=== PATIENT | female | born 1965 | race Caucasian/White ===

== ENCOUNTER → 2017-03-14 | Outpatient (CLI) | payer OTHER ==
[~2017-03-14] MED LIST: AMLODIPINE BESY1 TAB PO; ATARAX25 MG PO; AUGMENTIN 875 M1 TA1 PO; Amitriptyline H10 MG PO; BLOOD PRESSURE MED PO; BUMETANIDE2 MG PO; ESTRACE0.5 MG PO; ESTRACE1 M1 PO; FEROSUL325 MG PO; FLEXERIL10 MG PO; FLEXERIL5 MG PO; FUROSEMIDE40 MG PO; GLUCAPHAGE PO; GLYBURIDE5 MG PO; HUMALOG100 U/ML SC; HUMULIN R100 U/ML SC; HYDROCODONE BIT1 T11 PO; K-DUR 1010 MEQ PO; KLOR-CON M2020 ME1 PO; LANTUS100 U/ML SC; LASIX40 MG PO; LEVEMIR10 ML SC; LOPRESSER PO; LOPRESSOR25 MG PO; MEDROL DOSEPAK4 MG PO; MOTRIN800 MG PO; NEURONTIN300 MG PO; NEURONTIN600 MG PO; OMNICEF300 MG PO; ROBAXIN750 MG PO; STOOL SOFTENER100 M1 PO; SYNTHROID,LEV125 MCG PO; SYNTHROID0.125 MG PO; TOBRADEX 0.1%-0.5 ML OPH; TRAD5TAB1 PO; TRAMADOL HCL50 MG PO; ULTRAM50 MG PO; VITAMIN C500 M6 PO; VITAMIN D10000 UNIT PO; ZANTAC 150150 MG PO; ZITHROMAX Z PA250 MG PO
[2017-03-14 08:44] LABS: ALBUMIN 3.1 gm/dl (3.1-4.5); PHOSPHOROUS 3.6 mg/dL (2.5-4.9); POTASSIUM 4.8 mmol/L (3.5-5.1)
[2017-03-14 09:31] LABS: HEMOGLOBIN A1c 9.9 % (4.8-5.6)
== END | disposition home or self-care (01) ==
LOC: LAB 07:29
PROVIDERS: Family Medicine
DX: N18.3 Chronic kidney disease, stage 3 (moderate) (principal); E78.00 Pure hypercholesterolemia, unspecified; R05 Cough; M79.1 Myalgia; M62.838 Other muscle spasm

== ENCOUNTER 2017-09-11 12:44 | Emergency (ER) | payer OTHER ==
[~2017-09-11] VITALS: Ht 157.4 cm; Wt 124.7 kg
[2017-09-11 13:06] LABS: HEMATOCRIT 39.3 % (37.0-47.0); HEMOGLOBIN 12.8 g/dl (12.0-16.0); MEAN CELL VOLUME 89.3 fl (81.0-99.0); MEAN CORPUSCULAR HGB 29.1 pg (27.0-31.0); MEAN CORPUSCULAR HGB CONC 32.6 g/dl (33.0-37.0); MEAN PLATELET VOLUME 9.6 fl (9.6-12.3); PLATELET COUNT AUTOMATED 78 10*3/uL (130-400); WHITE BLOOD COUNT 6.4 10*3/uL (4.8-10.8)
[2017-09-11 13:21] LABS: ACT PARTIAL THROMBO TIME 28.2 SECONDS (20.8-31.5)
[2017-09-11 13:25] LABS: ALBUMIN 2.9 gm/dl (3.1-4.5); ALKALINE PHOSPHATASE 258 U/L (45-117); BUN 26 mg/dl (7-24); CHLORIDE 99 mmol/L (98-107); CREATININE 1.62 mg/dL (0.55-1.02); POTASSIUM 4.7 mmol/L (3.5-5.1); SGOT/AST 48 IU/L (3-35); SGPT/ALT 53 U/L (12-78); SODIUM 135 mmol/L (136-145); TOTAL PROTEIN 8.1 gm/dL (6.4-8.2)
[2017-09-11 13:28] LABS: ATYPICAL LYMPHS 4 % (0-0); BASOPHILS 1 % (0-1); PLASMA CELL 2 % (0-0); TOTAL CELLS COUNTED 100 #CELLS; TROPONIN I < 0.015 ng/ml (<0.045)
[2017-09-11 13:30] LABS: PLATELET SUFFICIENCY LOW (NORMAL); ROULEAUX MODERATE
[2017-09-11 16:19] VITALS: BP 153/57
== END 2017-09-11 16:20 | disposition home or self-care (01) ==
LOC: ED 12:44
PROVIDERS: Emergency Medicine
DX: R07.89 Other chest pain (principal); E66.01 Morbid (severe) obesity due to excess calories; R10.84 Generalized abdominal pain; I12.9 Hypertensive chronic kidney disease with stage 1 through stage 4 chronic kidney disease, or unspecified chronic kidney disease; E11.22 Type 2 diabetes mellitus with diabetic chronic kidney disease; N18.3 Chronic kidney disease, stage 3 (moderate); Z86.73 Personal history of transient ischemic attack (TIA), and cerebral infarction without residual deficits; Z68.43 Body mass index [BMI] 50.0-59.9, adult; Z98.890 Other specified postprocedural states; Z90.710 Acquired absence of both cervix and uterus; Z88.1 Allergy status to other antibiotic agents; Z79.4 Long term (current) use of insulin; Z79.899 Other long term (current) drug therapy

== ENCOUNTER → 2017-09-13 | Outpatient (CLI) | payer OTHER ==
[2017-09-14 07:05] LABS: RHEUMATOID ARTHRITIS FACTOR 14.2 IU/mL (0.0-13.9)
[2017-09-14 13:04] LABS: ANTI-SMOOTH MUSCLE ANTIBODY 33 Units (0-19)
[2017-09-14 16:11] LABS: SJOREN AB, ANTI-SS-B <0.2 AI (0.0-0.9)
== END | disposition home or self-care (01) ==
LOC: LAB 10:00
PROVIDERS: Family Medicine
DX: R07.9 Chest pain, unspecified (principal); M25.50 Pain in unspecified joint; M79.1 Myalgia

== ENCOUNTER 2017-09-17 19:07 | Emergency (ER) | payer OTHER ==
[~2017-09-17] VITALS: Ht 157.4 cm; Wt 124.7 kg
[2017-09-17 19:22] VITALS: BP 127/41
[2017-09-17 20:02] LABS: BASO % 0.1 % (0.0-1.0); EOS % 0.1 % (1.0-4.0); HEMATOCRIT 36.6 % (37.0-47.0); HEMOGLOBIN 11.9 g/dl (12.0-16.0); LYMPH # 1.1 10*3/uL (1.3-4.4); LYMPH % 9.2 % (27.0-41.0); MEAN CELL VOLUME 89.9 fl (81.0-99.0); MEAN CORPUSCULAR HGB 29.2 pg (27.0-31.0); MEAN CORPUSCULAR HGB CONC 32.5 g/dl (33.0-37.0); MEAN PLATELET VOLUME 10.8 fl (9.6-12.3); MONO # 0.3 10*3/uL (0.1-1.0); MONO % 2.5 % (3.0-9.0); NEUT # 10.6 10*3/uL (2.3-7.9); NEUT % 87.3 % (47.0-73.0); PLATELET COUNT AUTOMATED 199 10*3/uL (130-400); RED BLOOD COUNT 4.07 10*6/uL (4.10-5.10); RED CELL DISTRI WIDTH 13.1 % (0-14.5); WHITE BLOOD COUNT 12.2 10*3/uL (4.8-10.8)
[2017-09-17 20:19] LABS: ALBUMIN 2.5 gm/dl (3.1-4.5); ALKALINE PHOSPHATASE 318 U/L (45-117); BUN 42 mg/dl (7-24); CHLORIDE 100 mmol/L (98-107); CREATININE 1.96 mg/dL (0.55-1.02); POTASSIUM 4.4 mmol/L (3.5-5.1); SGOT/AST 16 IU/L (3-35); SGPT/ALT 27 U/L (12-78); SODIUM 136 mmol/L (136-145); TOTAL PROTEIN 8.7 gm/dL (6.4-8.2)
[2017-09-17 20:20] LABS: TROPONIN I < 0.015 ng/ml (<0.045)
[2017-09-17 20:38] LABS: BILIRUBIN NEGATIVE (NEGATIVE); BLOOD TRACE-INTACT (NEGATIVE); CLARITY CLEAR (CLEAR); COLOR YELLOW (YELLOW); GLUCOSE 3+ (NEGATIVE); KETONE NEGATIVE (NEGATIVE); LEUKO ESTERASE NEGATIVE (NEGATIVE); NITRITE NEGATIVE (NEGATIVE); PH 5.5 (5.0-9.0); SPECIFIC GRAVITY <= 1.005 (1.005-1.030); UROBILINOGEN 0.2 E.U./dl (0.2-1.0)
[2017-09-17 20:53] LABS: BACTERIA TRACE; RBC 0-2 rbc/hpf (0-2); WBC 0-2 wbc/hpf (0-5)
== END 2017-09-17 21:53 | disposition home or self-care (01) ==
LOC: ED 19:07
PROVIDERS: Student in an Organized Health Care Education/Training Program
DX: E11.22 Type 2 diabetes mellitus with diabetic chronic kidney disease (principal); N18.3 Chronic kidney disease, stage 3 (moderate); E11.65 Type 2 diabetes mellitus with hyperglycemia; Z86.73 Personal history of transient ischemic attack (TIA), and cerebral infarction without residual deficits; Z90.710 Acquired absence of both cervix and uterus; Z79.4 Long term (current) use of insulin; Z79.899 Other long term (current) drug therapy

== ENCOUNTER → 2017-09-17 | Outpatient (CLI) | payer OTHER ==
[2017-09-17 13:16] LABS: ALBUMIN 2.7 gm/dl (3.1-4.5); CREATININE 1.77 mg/dL (0.55-1.02); FREE T4 1.17 ng/dl (0.76-1.46); POTASSIUM 5.2 mmol/L (3.5-5.1); TOTAL PROTEIN 8.9 gm/dL (6.4-8.2)
[2017-09-17 13:21] LABS: THYROID STIM HORMONE (HS) 0.998 uIU/ml (0.358-4.75)
== END | disposition home or self-care (01) ==
LOC: LAB 11:11
PROVIDERS: Family Medicine
DX: I10 Essential (primary) hypertension (principal); E11.8 Type 2 diabetes mellitus with unspecified complications; E03.9 Hypothyroidism, unspecified; E78.00 Pure hypercholesterolemia, unspecified

== ENCOUNTER → 2017-10-20 | Outpatient (CLI) | payer OTHER ==
[2017-10-20 08:23] LABS: ALBUMIN 3.1 gm/dl (3.1-4.5); CREATININE 1.78 mg/dL (0.55-1.02); POTASSIUM 5.1 mmol/L (3.5-5.1); TOTAL PROTEIN 7.4 gm/dL (6.4-8.2)
== END | disposition home or self-care (01) ==
LOC: LAB 07:33
PROVIDERS: Family Medicine
DX: M79.1 Myalgia (principal); M25.50 Pain in unspecified joint; E87.5 Hyperkalemia; E87.1 Hypo-osmolality and hyponatremia

== ENCOUNTER 2017-10-31 16:18 | Emergency (ER) | payer OTHER ==
[~2017-10-31] VITALS: Ht 157.4 cm; Wt 124.7 kg
[2017-10-31 16:20] VITALS: BP 144/64
[2017-10-31] MEDS ORDERED: NAPROSYN500 MG PO (17:10)
[2017-10-31] MEDS ORDERED: MEDROL DOSEPAK4 MG PO (17:10)
[2017-10-31] MEDS ORDERED: CYCLOBENZAPRINE10 MG PO (17:10)
== END 2017-10-31 17:22 | disposition home or self-care (01) ==
LOC: ED 16:18
DX: S16.1XXA Strain of muscle, fascia and tendon at neck level, initial encounter (principal); Z88.1 Allergy status to other antibiotic agents; Z79.4 Long term (current) use of insulin; Z79.899 Other long term (current) drug therapy; Z90.710 Acquired absence of both cervix and uterus; X50.0XXA Overexertion from strenuous movement or load, initial encounter; Y93.89 Activity, other specified; Y92.89 Other specified places as the place of occurrence of the external cause; Y99.8 Other external cause status

== ENCOUNTER 2017-11-03 23:58 | Emergency (ER) | payer OTHER ==
[~2017-11-03] VITALS: Ht 157.4 cm; Wt 124.7 kg
[~2017-11-03 23:58] MED LIST changes: +CYCLOBENZAPRINE10 MG PO; +NAPROSYN500 MG PO
[2017-11-04 00:05] VITALS: BP 114/65
[2017-11-04] MEDS ORDERED: ORPHENADRINE C100 M1 PO (00:25)
[2017-11-04] MEDS ORDERED: Motrin,Rufen800 MG PO (00:25)
== END 2017-11-04 01:10 | disposition home or self-care (01) ==
LOC: ED 23:58
DX: S46.811A Strain of other muscles, fascia and tendons at shoulder and upper arm level, right arm, initial encounter (principal); Z88.1 Allergy status to other antibiotic agents; Z79.4 Long term (current) use of insulin; Z79.899 Other long term (current) drug therapy; Z90.710 Acquired absence of both cervix and uterus; X58.XXXA Exposure to other specified factors, initial encounter; Y93.89 Activity, other specified; Y92.89 Other specified places as the place of occurrence of the external cause; Y99.8 Other external cause status

== ENCOUNTER 2017-11-11 10:39 | Emergency (ER) | payer OTHER ==
[~2017-11-11] VITALS: Ht 157.4 cm; Wt 124.7 kg
[~2017-11-11 10:39] MED LIST changes: -AUGMENTIN 875875 MG PO; -DULOXETINE HCL60 MG PO; -LISINOPRIL10 M1 PO; -LYRICA150 M1 PO; -ZANAFLEX CAPSULE6 MG PO
[2017-11-11] MEDS ORDERED: LYRICA150 M1 PO (10:47)
[2017-11-11] MEDS ORDERED: AUGMENTIN 875875 MG PO (10:48)
[2017-11-11] MEDS ORDERED: LISINOPRIL10 M1 PO (10:48)
[2017-11-11] MEDS ORDERED: DULOXETINE HCL60 MG PO (10:48)
[2017-11-11 10:53] VITALS: BP 124/56
[2017-11-11] MEDS ORDERED: ZANAFLEX CAPSULE6 MG PO (12:35)
== END 2017-11-11 12:52 | disposition home or self-care (01) ==
LOC: ED 10:39
DX: M25.78 Osteophyte, vertebrae (principal); E11.22 Type 2 diabetes mellitus with diabetic chronic kidney disease; N18.3 Chronic kidney disease, stage 3 (moderate); E11.65 Type 2 diabetes mellitus with hyperglycemia; E66.01 Morbid (severe) obesity due to excess calories; Z86.73 Personal history of transient ischemic attack (TIA), and cerebral infarction without residual deficits; Z98.890 Other specified postprocedural states; Z90.710 Acquired absence of both cervix and uterus; Z79.4 Long term (current) use of insulin; Z79.899 Other long term (current) drug therapy; Z88.1 Allergy status to other antibiotic agents

== ENCOUNTER → 2017-11-11 | Outpatient (CLI) | payer OTHER ==
[~2017-11-11] MED LIST changes: +AUGMENTIN 875875 MG PO; +DULOXETINE HCL60 MG PO; -HUMALOG100 U/ML SC; +HUMALOG100 UNIT/2 SQ; +LANTUS SOL100 UNIT/1 SQ; +LISINOPRIL10 M1 PO; +LYRICA150 M1 PO; +Motrin,Rufen800 MG PO; +ORPHENADRINE C100 M1 PO; +ZANAFLEX CAPSULE6 MG PO
[2017-11-11 09:58] LABS: PTH INTACT 249.1 pg/mL (14.0-72.0); VITAMIN D, 25-HYDROXY 17.6 ng/mL (30-100)
== END | disposition home or self-care (01) ==
LOC: LAB 08:13
PROVIDERS: Family Medicine
DX: E55.9 Vitamin D deficiency, unspecified (principal)

== ENCOUNTER → 2017-12-14 | Outpatient (CLI) | payer OTHER ==
[~2017-12-14] MED LIST changes: +AUGMENTIN 875875 MG PO; +DULOXETINE HCL60 MG PO; +LISINOPRIL10 M1 PO; +LYRICA150 M1 PO; +ZANAFLEX CAPSULE6 MG PO
[2017-12-14 11:19] LABS: HEMATOCRIT 37.4 % (37.0-47.0); HEMOGLOBIN 12.3 g/dl (12.0-16.0); MEAN CELL VOLUME 93.7 fl (81.0-99.0); MEAN CORPUSCULAR HGB 30.8 pg (27.0-31.0); MEAN CORPUSCULAR HGB CONC 32.9 g/dl (33.0-37.0); MEAN PLATELET VOLUME 9.4 fl (9.6-12.3); RED BLOOD COUNT 3.99 10*6/uL (4.10-5.10); RED CELL DISTRI WIDTH 12.7 % (0-14.5); WHITE BLOOD COUNT 7.4 10*3/uL (4.8-10.8)
[2017-12-14 11:50] LABS: ALBUMIN 3.2 gm/dl (3.1-4.5); POTASSIUM 5.3 mmol/L (3.5-5.1)
[2017-12-14 11:59] LABS: CREATININE 2.37 mg/dL (0.55-1.02); FREE T4 1.14 ng/dl (0.76-1.46); THYROID STIM HORMONE (HS) 0.258 uIU/ml (0.358-4.75); TOTAL PROTEIN 7.1 gm/dL (6.4-8.2)
[2017-12-14 13:19] LABS: PTH INTACT 128.1 pg/mL (14.0-72.0)
== END | disposition home or self-care (01) ==
LOC: LAB 10:52
PROVIDERS: Family Medicine
DX: E21.3 Hyperparathyroidism, unspecified (principal); M62.838 Other muscle spasm; R53.83 Other fatigue; E55.9 Vitamin D deficiency, unspecified

== ENCOUNTER → 2018-04-07 | Outpatient (CLI) | payer OTHER ==
[2018-04-07 08:49] LABS: HEMATOCRIT 40.6 % (37.0-47.0); HEMOGLOBIN 12.9 g/dl (12.0-16.0); MEAN CELL VOLUME 96.9 fl (81.0-99.0); MEAN CORPUSCULAR HGB 30.8 pg (27.0-31.0); MEAN CORPUSCULAR HGB CONC 31.8 g/dl (33.0-37.0); MEAN PLATELET VOLUME 9.9 fl (9.6-12.3); RED BLOOD COUNT 4.19 10*6/uL (4.10-5.10); RED CELL DISTRI WIDTH 12.9 % (0-14.5); WHITE BLOOD COUNT 7.9 10*3/uL (4.8-10.8)
[2018-04-07 08:52] LABS: BILIRUBIN NEGATIVE (NEGATIVE); BLOOD NEGATIVE (NEGATIVE); CLARITY SL CLOUDY (CLEAR); COLOR YELLOW (YELLOW); GLUCOSE 3+ (NEGATIVE); KETONE NEGATIVE (NEGATIVE); LEUKO ESTERASE NEGATIVE (NEGATIVE); NITRITE NEGATIVE (NEGATIVE); PH 5.5 (5.0-9.0); UROBILINOGEN 0.2 E.U./dl (0.2-1.0)
[2018-04-07 09:06] LABS: BACTERIA TRACE; RBC 0-2 rbc/hpf (0-2)
[2018-04-07 09:12] LABS: PHOSPHOROUS 3.9 mg/dL (2.5-4.9)
[2018-04-07 09:17] LABS: ALBUMIN 3.4 gm/dl (3.1-4.5); CREATININE 1.76 mg/dL (0.55-1.02); POTASSIUM 4.1 mmol/L (3.5-5.1)
[2018-04-07 09:20] LABS: TOTAL PROTEIN 7.8 gm/dL (6.4-8.2)
[2018-04-08 09:10] LABS: CREATININE,URINE 112.4 mg/dL (Not Estab.); MICRO ALBUMIN/CRE RATIO 98.7 (0.0-30.0)
== END | disposition home or self-care (01) ==
LOC: LAB 07:54
PROVIDERS: Family Medicine; Internal Medicine Nephrology
DX: E21.3 Hyperparathyroidism, unspecified (principal); I12.9 Hypertensive chronic kidney disease with stage 1 through stage 4 chronic kidney disease, or unspecified chronic kidney disease; E11.22 Type 2 diabetes mellitus with diabetic chronic kidney disease; N18.3 Chronic kidney disease, stage 3 (moderate); M06.9 Rheumatoid arthritis, unspecified; E03.9 Hypothyroidism, unspecified; E55.9 Vitamin D deficiency, unspecified

== ENCOUNTER → 2018-06-25 | Outpatient (CLI) | payer OTHER ==
[2018-06-25 10:21] LABS: HEMATOCRIT 38.8 % (37.0-47.0); HEMOGLOBIN 12.5 g/dl (12.0-16.0); MEAN CORPUSCULAR HGB 31.3 pg (27.0-31.0); MEAN CORPUSCULAR HGB CONC 32.2 g/dl (33.0-37.0); MEAN PLATELET VOLUME 9.4 fl (9.6-12.3); WHITE BLOOD COUNT 11.8 10*3/uL (4.8-10.8)
[2018-06-25 10:50] LABS: ALBUMIN 3.1 gm/dl (3.1-4.5); CREATININE 1.59 mg/dL (0.55-1.02); POTASSIUM 4.4 mmol/L (3.5-5.1); TOTAL PROTEIN 7.5 gm/dL (6.4-8.2)
== END | disposition home or self-care (01) ==
LOC: LAB 09:54
PROVIDERS: Family Medicine
DX: I10 Essential (primary) hypertension (principal); R60.9 Edema, unspecified; M25.50 Pain in unspecified joint

== ENCOUNTER → 2018-07-20 | Outpatient (CLI) | payer OTHER ==
[~2018-07-20] MED LIST changes: +BASAG SOL SC; +CARVEDILOL3.125 MG PO; +GABAPENTIN800 MG PO; +JANUVIA100 MG PO; +NOVOLOG MI100 UNIT/1 SQ; +NOVOLOG100 UNIT/1 SQ; +TRULICITY1.5 MG/0.5 SC
== END | disposition home or self-care (01) ==
LOC: MAMMO 02:09
DX: N63.10 Unspecified lump in the right breast, unspecified quadrant (principal)

== ENCOUNTER → 2018-11-01 | Day surgery (SDC) | payer OTHER ==
[~2018-11-01] VITALS: Ht 157.4 cm; Wt 124.7 kg
--- NOTE | ~2018-11-01 | O ---
[place], [place] OPERATIVE NOTE NAME: SENA HOROWITZ UNIT #: [id number] ROOM: DOCTOR: TRUONG ROMO MD BIRTHDATE: [birth year] DOS: 11/01/2018 PREOPERATIVE DIAGNOSIS: Cataract, right eye. POSTOPERATIVE DIAGNOSIS: Cataract, right eye. OPERATION: Extracapsular cataract extraction by phacoemulsification with posterior chamber intraocular lens implantation, right eye. ANESTHESIA: Monitored standby. OPERATIVE FINDINGS AND PROCEDURE: 2% Xylocaine topical anesthetic gel was applied to the eye in the preop area. The patient was taken to the operating room and prepped and draped in the standard fashion for sterile intraocular surgery. A time out procedure was performed verifying correct patient, correct site and corrects lens with Ana Romo M.D. The operating microscope was swung into position and the lid speculum was inserted. Using a Shweta paracentesis blade, a paracentesis was made through clear cornea. Viscoelastic was used to fill the anterior chamber. Using a metal keratome a 2.4 mm self-sealing clear corneal cataract incision was made temporally at the limbus. Using a pre-bent 25 gauge cystotome needle, a standard continuous curvilinear capsulorrhexis was performed. The anterior capsule was removed with forceps. The lens nucleus was hydrodissected and phacoemulsified in the posterior chamber. Cortical material was removed with the irrigation aspiration hand piece and the posterior capsule was then polished with a curet under irrigation. The posterior chamber and capsular bag were filled with viscoelastic. A posterior chamber intraocular lens manufactured by: [employer], Model [id number] 25.0 diopters in strength were then inserted into the posterior chamber and within the capsular bag using the lens cartridge and injector system. Viscoelastic was removed using the irrigation aspiration handpiece. The anterior chamber was filled with balanced salt solution through the paracentesis. Both the paracentesis site and cataract incisions were hydrated with BSS and verified to be water-tight and self-sealing. Cefuroxime 1 mg/0.1 mL was injected into the anterior chamber through the paracentesis site. The incision checked to be water-tight using a Weck-Sylwia sponge. The integrity of the cataract wound and ocular tension were checked. Lid speculum and drapes were removed. The patient was transferred from the operating room to the recovery room in satisfactory condition. [place], [place] OPERATIVE NOTE NAME: SENA HOROWITZ UNIT #: [id number] ROOM: DOCTOR: TRUONG ROMO MD BIRTHDATE: [birth year] TRUONG ROMO MD CM:OPRECORD:OPERATIVE NOTE 1210 [id number] TRUONG ROMO MD 11/01/18 1256 interface
[2018-11-01 10:30] VITALS: BP 123/64
[2018-11-01 12:03] VITALS: BP 130/52
[2018-11-01 12:15] VITALS: BP 138/52
[2018-11-01 12:26] VITALS: BP 135/72
== END | disposition home or self-care (01) ==
LOC: SDC 10-27 15:30
DX: E11.36 Type 2 diabetes mellitus with diabetic cataract (principal); H25.811 Combined forms of age-related cataract, right eye; I11.0 Hypertensive heart disease with heart failure; I50.9 Heart failure, unspecified; J45.909 Unspecified asthma, uncomplicated; Z98.890 Other specified postprocedural states; Z88.1 Allergy status to other antibiotic agents; Z90.710 Acquired absence of both cervix and uterus; Z88.8 Allergy status to other drugs, medicaments and biological substances; Z82.49 Family history of ischemic heart disease and other diseases of the circulatory system

== ENCOUNTER → 2018-11-04 | Outpatient (CLI) | payer OTHER ==
[2018-11-04 09:46] LABS: BILIRUBIN NEGATIVE (NEGATIVE); BLOOD NEGATIVE (NEGATIVE); CLARITY SL CLOUDY (CLEAR); COLOR YELLOW (YELLOW); GLUCOSE NEGATIVE (NEGATIVE); KETONE NEGATIVE (NEGATIVE); LEUKO ESTERASE NEGATIVE (NEGATIVE); NITRITE NEGATIVE (NEGATIVE); PH 5.5 (5.0-9.0); UROBILINOGEN 0.2 E.U./dl (0.2-1.0)
[2018-11-04 09:51] LABS: HEMATOCRIT 37.8 % (37.0-47.0); HEMOGLOBIN 12.5 g/dl (12.0-16.0)
[2018-11-04 10:00] LABS: BACTERIA 2+
[2018-11-04 10:10] LABS: CREATININE 1.73 mg/dL (0.55-1.02); PHOSPHOROUS 3.8 mg/dL (2.5-4.9); POTASSIUM 4.4 mmol/L (3.5-5.1)
[2018-11-04 11:51] LABS: PTH INTACT 107.4 pg/mL (18.5-88.0); VITAMIN D, 25-HYDROXY 30.2 ng/mL (30-100)
[2018-11-05 06:34] LABS: CREATININE,URINE 68.9 mg/dL (Not Estab.); MICRO ALBUMIN/CRE RATIO 180.6 (0.0-30.0)
== END | disposition home or self-care (01) ==
LOC: LAB 09:18
PROVIDERS: Internal Medicine Nephrology
DX: N18.3 Chronic kidney disease, stage 3 (moderate) (principal)

== ENCOUNTER → 2018-11-22 | Day surgery (SDC) | payer OTHER ==
[~2018-11-22] VITALS: Ht 157.4 cm; Wt 124.7 kg
[~2018-11-22] MED LIST changes: +CEPHALEXIN500 M1 PO
--- NOTE | ~2018-11-22 | O ---
[place], [place] OPERATIVE NOTE NAME: SENA HOROWITZ UNIT #: [id number] ROOM: DOCTOR: TRUONG ROMO MD BIRTHDATE: [birth year] DOS: 11/22/2018 PREOPERATIVE DIAGNOSIS: Cataract, left eye. POSTOPERATIVE DIAGNOSIS: Cataract, left eye. OPERATION: Extracapsular cataract extraction by phacoemulsification with posterior chamber intraocular lens implantation, left eye. ANESTHESIA: Monitored standby. OPERATIVE FINDINGS AND PROCEDURE: 2% Xylocaine topical anesthetic gel was applied to the eye in the preop area. The patient was taken to the operating room and prepped and draped in the standard fashion for sterile intraocular surgery. A time out procedure was performed verifying correct patient, correct site and corrects lens with Ana Romo M.D. The operating microscope was swung into position and the lid speculum was inserted. Using a Shweta paracentesis blade, a paracentesis was made through clear cornea. Viscoelastic was used to fill the anterior chamber. Using a metal keratome a 2.4 mm self-sealing clear corneal cataract incision was made temporally at the limbus. Using a pre-bent 25 gauge cystotome needle, a standard continuous curvilinear capsulorrhexis was performed. The anterior capsule was removed with forceps. The lens nucleus was hydrodissected and phacoemulsified in the posterior chamber. Cortical material was removed with the irrigation aspiration hand piece and the posterior capsule was then polished with a curet under irrigation. The posterior chamber and capsular bag were filled with viscoelastic. A posterior chamber intraocular lens manufactured by: [employer], Model #[id number], and 25.0 diopters in strength were then inserted into the posterior chamber and within the capsular bag using the lens cartridge and injector system. Viscoelastic was removed using the irrigation aspiration handpiece. The anterior chamber was filled with balanced salt solution through the paracentesis. Both the paracentesis site and cataract incisions were hydrated with BSS and verified to be water-tight and self-sealing. Cefuroxime 1 mg/0.1 mL was injected into the anterior chamber through the paracentesis site. The incision checked to be water-tight using a Weck-Sylwia sponge. The integrity of the cataract wound and ocular tension were checked. Lid speculum and drapes were removed. The patient was transferred from the operating room to the recovery room in satisfactory condition. [place], [place] OPERATIVE NOTE NAME: SENA HOROWITZ UNIT #: [id number] ROOM: DOCTOR: TRUONG ROMO MD BIRTHDATE: [birth year] TRUONG ROMO MD CM:OPRECORD:OPERATIVE NOTE 0850 [id number] TRUONG ROMO MD 11/30/18 0754 interface
[2018-11-22 07:57] VITALS: BP 142/60
[2018-11-22 08:48] VITALS: BP 127/65
[2018-11-22 09:03] VITALS: BP 139/68
[2018-11-22 09:18] VITALS: BP 132/71
[2018-11-22 09:33] VITALS: BP 135/72
== END ==
LOC: SDC 11-17 08:45
DX: H25.812 Combined forms of age-related cataract, left eye (principal); E10.3293 Type 1 diabetes mellitus with mild nonproliferative diabetic retinopathy without macular edema, bilateral; I13.0 Hypertensive heart and chronic kidney disease with heart failure and stage 1 through stage 4 chronic kidney disease, or unspecified chronic kidney disease; E10.22 Type 1 diabetes mellitus with diabetic chronic kidney disease; N18.9 Chronic kidney disease, unspecified; I50.9 Heart failure, unspecified; E66.01 Morbid (severe) obesity due to excess calories; Z68.43 Body mass index [BMI] 50.0-59.9, adult; Z98.890 Other specified postprocedural states; Z90.710 Acquired absence of both cervix and uterus; Z88.1 Allergy status to other antibiotic agents; Z79.4 Long term (current) use of insulin; Z98.41 Cataract extraction status, right eye; Z96.1 Presence of intraocular lens; Z79.899 Other long term (current) drug therapy; Z88.8 Allergy status to other drugs, medicaments and biological substances; Z82.49 Family history of ischemic heart disease and other diseases of the circulatory system

== ENCOUNTER → 2018-11-25 | Outpatient (CLI) | payer OTHER ==
[2018-11-25 10:55] LABS: BILIRUBIN NEGATIVE (NEGATIVE); BLOOD NEGATIVE (NEGATIVE); CLARITY CLEAR (CLEAR); COLOR YELLOW (YELLOW); GLUCOSE 3+ (NEGATIVE); KETONE NEGATIVE (NEGATIVE); LEUKO ESTERASE NEGATIVE (NEGATIVE); NITRITE NEGATIVE (NEGATIVE); PH 5.5 (5.0-9.0); UROBILINOGEN 0.2 E.U./dl (0.2-1.0)
[2018-11-25 11:24] LABS: ALBUMIN 3.2 gm/dl (3.1-4.5); BILIRUBIN, DIRECT 0.2 mg/dL (0.0-0.2); CREATININE 1.79 mg/dL (0.55-1.02); POTASSIUM 4.3 mmol/L (3.5-5.1); TOTAL PROTEIN 8.5 gm/dL (6.4-8.2)
[2018-11-25 11:26] LABS: BACTERIA TRACE
[2018-11-25 11:31] LABS: FREE T4 1.17 ng/dl (0.76-1.46); THYROID STIM HORMONE (HS) 4.31 uIU/ml (0.358-4.75)
[2018-11-25 12:37] LABS: PTH INTACT 142.5 pg/mL (18.5-88.0); VITAMIN D, 25-HYDROXY 30.3 ng/mL (30-100)
== END | disposition home or self-care (01) ==
LOC: LAB 10:10
PROVIDERS: Internal Medicine Nephrology
DX: N39.0 Urinary tract infection, site not specified (principal); I12.9 Hypertensive chronic kidney disease with stage 1 through stage 4 chronic kidney disease, or unspecified chronic kidney disease; E11.22 Type 2 diabetes mellitus with diabetic chronic kidney disease; N18.3 Chronic kidney disease, stage 3 (moderate); E21.3 Hyperparathyroidism, unspecified; E11.40 Type 2 diabetes mellitus with diabetic neuropathy, unspecified; E03.9 Hypothyroidism, unspecified; E78.5 Hyperlipidemia, unspecified; E55.9 Vitamin D deficiency, unspecified

== ENCOUNTER 2018-12-25 15:55 | Emergency (ER) | payer OTHER ==
[~2018-12-25 15:55] MED LIST changes: -CEPHALEXIN500 M1 PO
[2018-12-25 15:58] VITALS: BP 128/73
[2018-12-25] MEDS ORDERED: CEPHALEXIN500 M1 PO (18:04)
== END 2018-12-25 18:08 | disposition left against medical advice (07) ==
LOC: ED 15:55
DX: S61.307A Unspecified open wound of left little finger with damage to nail, initial encounter (principal); Z88.1 Allergy status to other antibiotic agents; Z79.899 Other long term (current) drug therapy; W23.0XXA Caught, crushed, jammed, or pinched between moving objects, initial encounter; Y93.89 Activity, other specified; Y92.89 Other specified places as the place of occurrence of the external cause; Y99.8 Other external cause status

== ENCOUNTER → 2019-03-08 | Outpatient (CLI) | payer OTHER ==
[~2019-03-08] MED LIST changes: +CEPHALEXIN500 M1 PO
[2019-03-08 10:26] LABS: HEMATOCRIT 40.2 % (37.0-47.0)
[2019-03-08 10:41] LABS: POTASSIUM 4.3 mmol/L (3.5-5.1)
[2019-03-08 10:43] LABS: BILIRUBIN NEGATIVE (NEGATIVE); BLOOD NEGATIVE (NEGATIVE); CLARITY CLEAR (CLEAR); COLOR YELLOW (YELLOW); GLUCOSE 3+ (NEGATIVE); KETONE NEGATIVE (NEGATIVE); LEUKO ESTERASE NEGATIVE (NEGATIVE); NITRITE NEGATIVE (NEGATIVE); PH 5.5 (5.0-9.0); UROBILINOGEN 0.2 E.U./dl (0.2-1.0)
[2019-03-08 10:48] LABS: URINE CREATININE RANDOM 85.1 mg/dL
[2019-03-08 10:54] LABS: CREATININE 1.86 mg/dL (0.55-1.02)
[2019-03-08 11:23] LABS: BACTERIA TRACE; RBC 0-2 rbc/hpf (0-2); WBC 0-2 wbc/hpf (0-5)
[2019-03-08 12:09] LABS: VITAMIN D, 25-HYDROXY 34.6 ng/mL (30-100)
[2019-03-08 12:10] LABS: PTH INTACT 161.6 pg/mL (18.5-88.0)
[2019-03-09 11:04] LABS: CREATININE,URINE 77.7 mg/dL (Not Estab.); MICRO ALBUMIN/CRE RATIO 371.7 (0.0-30.0)
== END | disposition home or self-care (01) ==
LOC: LAB 09:20
PROVIDERS: Internal Medicine Nephrology
DX: N18.3 Chronic kidney disease, stage 3 (moderate) (principal)

== ENCOUNTER → 2019-04-03 | Outpatient (CLI) | payer OTHER | END | disposition home or self-care (01) | LOC: US 12:15 | DX: I73.9 Peripheral vascular disease, unspecified (principal) ==

== ENCOUNTER → 2019-04-20 | Outpatient (CLI) | payer OTHER ==
[2019-04-20 10:44] LABS: HEMATOCRIT 39.1 % (37.0-47.0); HEMOGLOBIN 12.5 g/dl (12.0-16.0); MEAN CELL VOLUME 96.3 fl (81.0-99.0); MEAN CORPUSCULAR HGB 30.8 pg (27.0-31.0); MEAN PLATELET VOLUME 9.7 fl (9.6-12.3); RED BLOOD COUNT 4.06 10*6/uL (4.10-5.10); RED CELL DISTRI WIDTH 12.5 % (0-14.5); WHITE BLOOD COUNT 12.6 10*3/uL (4.8-10.8)
[2019-04-20 11:18] LABS: ALBUMIN 3.4 gm/dl (3.1-4.5); CREATININE 1.91 mg/dL (0.55-1.02); POTASSIUM 4.6 mmol/L (3.5-5.1); TOTAL PROTEIN 7.9 gm/dL (6.4-8.2)
== END | disposition home or self-care (01) ==
LOC: LAB 10:16
PROVIDERS: Family Medicine
DX: E78.00 Pure hypercholesterolemia, unspecified (principal); E55.9 Vitamin D deficiency, unspecified; E11.9 Type 2 diabetes mellitus without complications; I10 Essential (primary) hypertension; R60.0 Localized edema

== ENCOUNTER → 2019-05-08 | Outpatient (CLI) | payer OTHER | END | disposition home or self-care (01) | LOC: LAB 07:40 | DX: E66.01 Morbid (severe) obesity due to excess calories (principal) ==

== ENCOUNTER 2019-06-11 15:03 | Emergency (ER) | payer OTHER ==
[~2019-06-11] VITALS: Ht 157.4 cm; Wt 126.1 kg
[2019-06-11 15:03] VITALS: BP 180/57
[2019-06-11 15:38] LABS: BASO % 0.5 % (0.0-1.0); EOS # 0.4 10*3/uL (0.0-0.4); EOS % 5.4 % (1.0-4.0); HEMATOCRIT 37.6 % (37.0-47.0); HEMOGLOBIN 11.9 g/dl (12.0-16.0); LYMPH # 1.3 10*3/uL (1.3-4.4); MEAN CELL VOLUME 102.7 fl (81.0-99.0); MEAN CORPUSCULAR HGB 32.5 pg (27.0-31.0); MEAN CORPUSCULAR HGB CONC 31.6 g/dl (33.0-37.0); MEAN PLATELET VOLUME 9.6 fl (9.6-12.3); MONO # 0.8 10*3/uL (0.1-1.0); MONO % 9.7 % (3.0-9.0); NEUT # 5.6 10*3/uL (2.3-7.9); NEUT % 67.5 % (47.0-73.0); PLATELET COUNT AUTOMATED 214 10*3/uL (130-400); RED BLOOD COUNT 3.66 10*6/uL (4.10-5.10); RED CELL DISTRI WIDTH 13.9 % (0-14.5); WHITE BLOOD COUNT 8.2 10*3/uL (4.8-10.8)
[2019-06-11 15:53] LABS: CREATININE 1.6 mg/dL (0.55-1.02); POTASSIUM 5.8 mmol/L (3.5-5.1)
[2019-06-11 18:45] LABS: CREATININE 1.39 mg/dL (0.55-1.02)
[2019-06-11 18:49] LABS: POTASSIUM 4.7 mmol/L (3.5-5.1)
[2019-06-11] MEDS ORDERED: AUGMENTIN 875875 MG PO (20:32)
== END 2019-06-11 20:39 | disposition home or self-care (01) ==
LOC: ED 15:03
PROVIDERS: Nurse Practitioner
DX: S00.83XA Contusion of other part of head, initial encounter (principal); S00.12XA Contusion of left eyelid and periocular area, initial encounter; S00.11XA Contusion of right eyelid and periocular area, initial encounter; M54.2 Cervicalgia; E11.9 Type 2 diabetes mellitus without complications; Z79.4 Long term (current) use of insulin; Z79.899 Other long term (current) drug therapy; Z88.1 Allergy status to other antibiotic agents; W01.198A Fall on same level from slipping, tripping and stumbling with subsequent striking against other object, initial encounter; Y93.89 Activity, other specified; Y92.89 Other specified places as the place of occurrence of the external cause; Y99.8 Other external cause status

== ENCOUNTER 2019-06-14 08:29 | Emergency (ER) | payer OTHER ==
[~2019-06-14] VITALS: Ht 157.4 cm; Wt 126.1 kg
--- NOTE | ~2019-06-14 | EKG ---
[place], [place] ELECTROCARDIOGRAM REPORT NAME: SENA HOROWITZ UNIT #: [id number] ROOM: DOCTOR: EPIPHANY DRAFT REPORT BIRTHDATE: [birth year] [facility] Test Date: 2019-06-14 Test Time: 09:34:47 Pat Name: SENA HOROWITZ Department: Room: Gender: F [employer] Executive: Leticia Martin : 1965 Requested By: EVERARDO OCHOA Order Number: [id number] Reading MD: Spring Linder Measurements Intervals [place] Rate: 64 P: 34 CT: 160 QRS: 32 QRSD: 80 T: 63 QT: 428 QTc: 442 Interpretive Statements Sinus rhythm Low voltage, precordial leads Baseline wander in lead(s) II,aVR,V1 Compared to ECG 10/09/2018 16:13:21 Myocardial infarct finding no longer present Electronically Signed On 06-15-2019 12:23:44 PDT by Spring Linder CM:EKGRPT:ELECTROCARDIOGRAM REPORT 0934 1223 EVERARDO ASHTON DRAFT REPORT EVERARDO OCHOA MD
[2019-06-14 08:32] VITALS: BP 179/78
[2019-06-14 09:02] LABS: BASO # 0.1 10*3/uL (0.0-0.1); BASO % 0.5 % (0.0-1.0); EOS # 0.5 10*3/uL (0.0-0.4); EOS % 4.4 % (1.0-4.0); HEMATOCRIT 39.7 % (37.0-47.0); HEMOGLOBIN 12.7 g/dl (12.0-16.0); LYMPH # 1.9 10*3/uL (1.3-4.4); LYMPH % 17.9 % (27.0-41.0); MEAN CELL VOLUME 100.3 fl (81.0-99.0); MEAN CORPUSCULAR HGB 32.1 pg (27.0-31.0); MEAN PLATELET VOLUME 9.6 fl (9.6-12.3); MONO # 0.8 10*3/uL (0.1-1.0); NEUT # 7.5 10*3/uL (2.3-7.9); NEUT % 69.6 % (47.0-73.0); PLATELET COUNT AUTOMATED 262 10*3/uL (130-400); RED BLOOD COUNT 3.96 10*6/uL (4.10-5.10); RED CELL DISTRI WIDTH 13.8 % (0-14.5); WHITE BLOOD COUNT 10.8 10*3/uL (4.8-10.8)
[2019-06-14 09:12] LABS: CREATININE 1.54 mg/dL (0.55-1.02); POTASSIUM 4.8 mmol/L (3.5-5.1)
[2019-06-14 11:01] LABS: BILIRUBIN NEGATIVE (NEGATIVE); BLOOD NEGATIVE (NEGATIVE); CLARITY SL CLOUDY (CLEAR); COLOR YELLOW (YELLOW); GLUCOSE 3+ (NEGATIVE); KETONE NEGATIVE (NEGATIVE); LEUKO ESTERASE NEGATIVE (NEGATIVE); NITRITE NEGATIVE (NEGATIVE); PH 5.5 (5.0-9.0); SPECIFIC GRAVITY 1.025 (1.005-1.030); UROBILINOGEN 0.2 E.U./dl (0.2-1.0)
[2019-06-14 11:13] LABS: EPITHELIAL CELLS 16-20
== END 2019-06-14 13:31 | disposition home or self-care (01) ==
LOC: ED 08:29
PROVIDERS: Emergency Medicine
DX: S06.0X0A Concussion without loss of consciousness, initial encounter (principal); R42 Dizziness and giddiness; R11.2 Nausea with vomiting, unspecified; R70.0 Elevated erythrocyte sedimentation rate; E11.22 Type 2 diabetes mellitus with diabetic chronic kidney disease; N18.3 Chronic kidney disease, stage 3 (moderate); E66.01 Morbid (severe) obesity due to excess calories; Z88.1 Allergy status to other antibiotic agents; Z79.899 Other long term (current) drug therapy; Z79.4 Long term (current) use of insulin; Z68.43 Body mass index [BMI] 50.0-59.9, adult; Z86.73 Personal history of transient ischemic attack (TIA), and cerebral infarction without residual deficits; W18.39XA Other fall on same level, initial encounter; Y93.89 Activity, other specified; Y92.89 Other specified places as the place of occurrence of the external cause; Y99.8 Other external cause status

== ENCOUNTER → 2019-07-16 | Outpatient (CLI) | payer OTHER ==
[2019-07-16 13:39] LABS: BILIRUBIN NEGATIVE (NEGATIVE); BLOOD NEGATIVE (NEGATIVE); CLARITY CLEAR (CLEAR); COLOR STRAW (YELLOW); GLUCOSE 2+ (NEGATIVE); HEMOGLOBIN 11.5 g/dl (12.0-16.0); KETONE NEGATIVE (NEGATIVE); LEUKO ESTERASE NEGATIVE (NEGATIVE); NITRITE NEGATIVE (NEGATIVE); PH 5.5 (5.0-9.0); UROBILINOGEN 0.2 E.U./dl (0.2-1.0)
[2019-07-16 13:54] LABS: POTASSIUM 4.4 mmol/L (3.5-5.1)
[2019-07-16 13:58] LABS: CREATININE 1.68 mg/dL (0.55-1.02)
[2019-07-16 14:01] LABS: URINE CREATININE RANDOM < 13.00 mg/dL
[2019-07-16 14:19] LABS: EPITHELIAL CELLS 21-30
[2019-07-16 14:20] LABS: BACTERIA TRACE; WBC 0-2 wbc/hpf (0-5)
[2019-07-16 14:39] LABS: PTH INTACT 117.3 pg/mL (18.5-88.0); VITAMIN D, 25-HYDROXY 32.8 ng/mL (30-100)
[2019-07-17 11:08] LABS: MICRO ALBUMIN/CRE RATIO 788.5 (0.0-30.0)
== END | disposition home or self-care (01) ==
LOC: LAB 12:37
PROVIDERS: Internal Medicine Nephrology
DX: N18.3 Chronic kidney disease, stage 3 (moderate) (principal)

== ENCOUNTER → 2019-08-11 | Outpatient (CLI) | payer OTHER ==
[2019-08-11 09:38] LABS: CREATININE 1.76 mg/dL (0.55-1.02); POTASSIUM 4.3 mmol/L (3.5-5.1)
[2019-08-11 09:42] LABS: ALBUMIN 3.2 gm/dl (3.1-4.5); BILIRUBIN, DIRECT 0.2 mg/dL (0.0-0.2); TOTAL PROTEIN 7.7 gm/dL (6.4-8.2)
[2019-08-11 09:47] LABS: BILIRUBIN NEGATIVE (NEGATIVE); BLOOD NEGATIVE (NEGATIVE); CLARITY CLEAR (CLEAR); COLOR YELLOW (YELLOW); GLUCOSE NEGATIVE (NEGATIVE); KETONE NEGATIVE (NEGATIVE); LEUKO ESTERASE NEGATIVE (NEGATIVE); NITRITE NEGATIVE (NEGATIVE); SPECIFIC GRAVITY 1.015 (1.005-1.030); UROBILINOGEN 0.2 E.U./dl (0.2-1.0)
[2019-08-11 09:48] LABS: THYROID STIM HORMONE (HS) 1.85 uIU/ml (0.358-4.75); VITAMIN D, 25-HYDROXY 25.8 ng/mL (30-100)
[2019-08-11 09:49] LABS: PTH INTACT 82.7 pg/mL (18.5-88.0)
[2019-08-11 10:04] LABS: URINE CREATININE RANDOM 18.9 mg/dL
[2019-08-11 10:12] LABS: BACTERIA TRACE
[2019-08-12 06:32] LABS: CREATININE,URINE 20.7 mg/dL (Not Estab.)
== END ==
LOC: LAB 08:21
PROVIDERS: Internal Medicine; Internal Medicine Nephrology
DX: E78.5 Hyperlipidemia, unspecified (principal); E11.9 Type 2 diabetes mellitus without complications; E55.9 Vitamin D deficiency, unspecified; E11.40 Type 2 diabetes mellitus with diabetic neuropathy, unspecified; E89.2 Postprocedural hypoparathyroidism; E03.9 Hypothyroidism, unspecified; E66.01 Morbid (severe) obesity due to excess calories

== ENCOUNTER → 2019-11-24 | Outpatient (CLI) | payer OTHER ==
[2019-11-24 08:06] LABS: BILIRUBIN NEGATIVE (NEGATIVE); BLOOD TRACE-INTACT (NEGATIVE); CLARITY SL CLOUDY (CLEAR); COLOR YELLOW (YELLOW); GLUCOSE NEGATIVE (NEGATIVE); KETONE NEGATIVE (NEGATIVE); LEUKO ESTERASE NEGATIVE (NEGATIVE); NITRITE NEGATIVE (NEGATIVE); PH 5.5 (5.0-9.0); SPECIFIC GRAVITY >= 1.030 (1.005-1.030); UROBILINOGEN 0.2 E.U./dl (0.2-1.0)
[2019-11-24 08:33] LABS: EPITHELIAL CELLS 15-20; MUCOUS TRACE
[2019-11-24 08:36] LABS: ALBUMIN 3.3 gm/dl (3.1-4.5); BILIRUBIN, DIRECT 0.2 mg/dL (0.0-0.2); CREATININE 2.05 mg/dL (0.55-1.02); FREE T4 1.08 ng/dl (0.76-1.46); POTASSIUM 4.5 mmol/L (3.5-5.1); TOTAL PROTEIN 7.4 gm/dL (6.4-8.2)
[2019-11-24 08:41] LABS: THYROID STIM HORMONE (HS) 0.41 uIU/ml (0.358-4.75)
[2019-11-24 09:56] LABS: PTH INTACT 191.4 pg/mL (18.5-88.0); VITAMIN D, 25-HYDROXY 29.7 ng/mL (30-100)
== END | disposition home or self-care (01) ==
LOC: LAB 07:45
PROVIDERS: Internal Medicine
DX: E78.5 Hyperlipidemia, unspecified (principal); E11.40 Type 2 diabetes mellitus with diabetic neuropathy, unspecified; E55.9 Vitamin D deficiency, unspecified; E03.9 Hypothyroidism, unspecified; E89.2 Postprocedural hypoparathyroidism; E24.9 Cushing's syndrome, unspecified

== ENCOUNTER → 2019-12-16 | Outpatient (CLI) | payer OTHER ==
[2019-12-16 12:43] LABS: CREATININE 1.61 mg/dL (0.55-1.02); POTASSIUM 4.3 mmol/L (3.5-5.1)
== END | disposition home or self-care (01) ==
LOC: LAB 11:53
PROVIDERS: Internal Medicine
DX: E11.9 Type 2 diabetes mellitus without complications (principal); E24.9 Cushing's syndrome, unspecified

== ENCOUNTER 2020-01-01 17:58 | Emergency (ER) | payer OTHER ==
[~2020-01-01] VITALS: Ht 157.4 cm; Wt 127.0 kg
[2020-01-01 18:08] VITALS: BP 144/55
== END 2020-01-01 19:07 | disposition home or self-care (01) ==
LOC: ED 17:58
DX: S05.02XA Injury of conjunctiva and corneal abrasion without foreign body, left eye, initial encounter (principal); E11.9 Type 2 diabetes mellitus without complications; I10 Essential (primary) hypertension; E07.9 Disorder of thyroid, unspecified; Z88.1 Allergy status to other antibiotic agents; Z79.2 Long term (current) use of antibiotics; Z79.899 Other long term (current) drug therapy; Z79.4 Long term (current) use of insulin; Z90.710 Acquired absence of both cervix and uterus; W22.8XXA Striking against or struck by other objects, initial encounter; Y93.89 Activity, other specified; Y92.048 Other place in boarding-house as the place of occurrence of the external cause; Y99.8 Other external cause status

== ENCOUNTER → 2020-01-13 | Outpatient (CLI) | payer OTHER ==
[2020-01-13 13:22] LABS: CREATININE 2.21 mg/dL (0.55-1.02); POTASSIUM 4.8 mmol/L (3.5-5.1)
== END | disposition home or self-care (01) ==
LOC: LAB 12:27
PROVIDERS: Internal Medicine
DX: E11.9 Type 2 diabetes mellitus without complications (principal)

== ENCOUNTER 2020-02-14 10:57 | Inpatient (IN) | payer OTHER ==
[~2020-02-14] VITALS: Ht 165.1 cm; Wt 134.9 kg
[2020-02-14 10:58] VITALS: BP 141/59
[2020-02-14 11:58] LABS: BASO % 0.7 % (0.0-1.0); EOS # 0.4 10*3/uL (0.0-0.4); EOS % 6.9 % (1.0-4.0); HEMATOCRIT 26.1 % (37.0-47.0); HEMOGLOBIN 8.4 g/dl (12.0-16.0); LYMPH # 0.5 10*3/uL (1.3-4.4); LYMPH % 7.5 % (27.0-41.0); MEAN CELL VOLUME 101.2 fl (81.0-99.0); MEAN CORPUSCULAR HGB 32.6 pg (27.0-31.0); MEAN CORPUSCULAR HGB CONC 32.2 g/dl (33.0-37.0); MEAN PLATELET VOLUME 8.9 fl (9.6-12.3); MONO # 0.3 10*3/uL (0.1-1.0); MONO % 5.1 % (3.0-9.0); NEUT # 4.8 10*3/uL (2.3-7.9); NEUT % 77.7 % (47.0-73.0); PLATELET COUNT AUTOMATED 295 10*3/uL (130-400); RED BLOOD COUNT 2.58 10*6/uL (4.10-5.10); RED CELL DISTRI WIDTH 15.6 % (0-14.5); WHITE BLOOD COUNT 6.1 10*3/uL (4.8-10.8)
[2020-02-14 12:12] LABS: ACT PARTIAL THROMBO TIME 27.9 SECONDS (20.0-32.1); ALBUMIN 2.6 gm/dl (3.1-4.5); ALKALINE PHOSPHATASE 112 U/L (45-117); BUN 14 mg/dl (7-24); CHLORIDE 102 mmol/L (98-107); CREATININE 1.53 mg/dL (0.55-1.02); LIPASE 130 U/L (73-393); POTASSIUM 3.2 mmol/L (3.5-5.1); SGOT/AST 17 IU/L (3-35); SGPT/ALT 20 U/L (12-78); SODIUM 136 mmol/L (136-145); TOTAL PROTEIN 6.3 gm/dL (6.4-8.2)
[2020-02-14 12:13] LABS: TROPONIN I < 0.015 ng/ml (<0.045)
[2020-02-14 14:45] VITALS: BP 144/77
[2020-02-14] MEDS ORDERED: PROAIR HFA8.5 GM INH (15:12)
[2020-02-14] MEDS ORDERED: AVPAK AZITHROM250 M1 PO (15:12)
[2020-02-14] MEDS ORDERED: BUMETANIDE2 MG PO (15:13)
[2020-02-14] MEDS ORDERED: TESSALON PERLE100 MG PO (15:13)
[2020-02-14] MEDS ORDERED: Rocaltrol0.25 MCG PO (15:14)
[2020-02-14] MEDS ORDERED: NATURE'S BLEND F1 MG PO (15:16)
[2020-02-14] MEDS ORDERED: FISH OIL 1,0001 EAC4 PO (15:16)
[2020-02-14] MEDS ORDERED: 24HR ALLERGY REL5 MG PO (15:18)
[2020-02-14] MEDS ORDERED: METHOTREXATE2.5 M1 PO (15:19)
[2020-02-14] MEDS ORDERED: OZEMPIC1 MG/0.75 SQ (15:20)
[2020-02-14] MEDS ORDERED: CRESTOR10 M1 PO (15:21)
[2020-02-14 16:00] VITALS: BP 144/77
[2020-02-14 20:00] VITALS: BP 125/84
[2020-02-15] VITALS: BP 146/67
[2020-02-15 06:52] LABS: BASO % 0.5 % (0.0-1.0); EOS # 0.2 10*3/uL (0.0-0.4); HEMATOCRIT 27.3 % (37.0-47.0); HEMOGLOBIN 8.7 g/dl (12.0-16.0); LYMPH # 0.3 10*3/uL (1.3-4.4); LYMPH % 5.7 % (27.0-41.0); MEAN CELL VOLUME 101.5 fl (81.0-99.0); MEAN CORPUSCULAR HGB 32.3 pg (27.0-31.0); MEAN CORPUSCULAR HGB CONC 31.9 g/dl (33.0-37.0); MEAN PLATELET VOLUME 9.2 fl (9.6-12.3); MONO # 0.4 10*3/uL (0.1-1.0); MONO % 7.3 % (3.0-9.0); NEUT # 4.8 10*3/uL (2.3-7.9); NEUT % 79.7 % (47.0-73.0); PLATELET COUNT AUTOMATED 287 10*3/uL (130-400); RED BLOOD COUNT 2.69 10*6/uL (4.10-5.10); RED CELL DISTRI WIDTH 16.4 % (0-14.5)
[2020-02-15 07:03] LABS: ACT PARTIAL THROMBO TIME 27.6 SECONDS (20.0-32.1)
[2020-02-15 07:08] LABS: ALBUMIN 2.8 gm/dl (3.1-4.5); POTASSIUM 3.6 mmol/L (3.5-5.1)
[2020-02-15 07:10] LABS: CREATININE 1.64 mg/dL (0.55-1.02); TOTAL PROTEIN 6.9 gm/dL (6.4-8.2)
[2020-02-15 08:00] VITALS: BP 156/69
[2020-02-15 12:00] VITALS: BP 145/69
[2020-02-15 16:00] VITALS: BP 119/61
[2020-02-15 20:00] VITALS: BP 132/58
[2020-02-16 07:32] LABS: HEMOGLOBIN 8.8 g/dl (12.0-16.0); MEAN CELL VOLUME 102.6 fl (81.0-99.0); MEAN CORPUSCULAR HGB 32.2 pg (27.0-31.0); MEAN CORPUSCULAR HGB CONC 31.4 g/dl (33.0-37.0); MEAN PLATELET VOLUME 9.4 fl (9.6-12.3); PLATELET COUNT AUTOMATED 244 10*3/uL (130-400); RED BLOOD COUNT 2.73 10*6/uL (4.10-5.10); RED CELL DISTRI WIDTH 16.8 % (0-14.5)
[2020-02-16 08:00] VITALS: BP 130/68
[2020-02-16 08:05] LABS: TOTAL CELLS COUNTED 100 #CELLS
[2020-02-16 08:06] LABS: PLATELET SUFFICIENCY NORMAL (NORMAL); POLYCHROMASIA SLIGHT
[2020-02-16 08:07] LABS: CREATININE 1.78 mg/dL (0.55-1.02); POTASSIUM 3.9 mmol/L (3.5-5.1)
[2020-02-16] MEDS ORDERED: HYDROXYCHLOROQ200 M1 PO (11:28)
[2020-02-16] MEDS ORDERED: TAMIFLU 75MG CA75 MG PO (11:28)
[2020-02-16] MEDS ORDERED: AVPAK AZITHROM250 M1 PO (11:28)
[2020-02-16 12:00] VITALS: BP 114/90
== END 2020-02-16 17:16 | disposition home or self-care (01) | DRG 139 ==
LOC: ED 10:57 → EDHOLD 14:06 → 5E 14:24
PROVIDERS: Emergency Medicine; ADMIT Family Medicine
DX: J18.9 Pneumonia, unspecified organism (principal); J96.01 Acute respiratory failure with hypoxia; D53.9 Nutritional anemia, unspecified; E87.1 Hypo-osmolality and hyponatremia; N17.0 Acute kidney failure with tubular necrosis; E11.65 Type 2 diabetes mellitus with hyperglycemia; E83.39 Other disorders of phosphorus metabolism; E43 Unspecified severe protein-calorie malnutrition; E87.6 Hypokalemia; E11.22 Type 2 diabetes mellitus with diabetic chronic kidney disease; N18.3 Chronic kidney disease, stage 3 (moderate); E66.01 Morbid (severe) obesity due to excess calories; Z82.49 Family history of ischemic heart disease and other diseases of the circulatory system; Z79.899 Other long term (current) drug therapy; Z79.4 Long term (current) use of insulin; Z88.1 Allergy status to other antibiotic agents; Z68.42 Body mass index [BMI] 45.0-49.9, adult; Z20.828 Contact with and (suspected) exposure to other viral communicable diseases

== ENCOUNTER 2020-03-06 15:01 | Emergency (ER) | payer OTHER ==
[~2020-03-06] VITALS: Ht 167.6 cm; Wt 163.3 kg
[~2020-03-06 15:01] MED LIST changes: +24HR ALLERGY REL5 MG PO; +AVPAK AZITHROM250 M1 PO; +CRESTOR10 M1 PO; +FISH OIL 1,0001 EAC4 PO; +HYDROXYCHLOROQ200 M1 PO; +METHOTREXATE2.5 M1 PO; +NATURE'S BLEND F1 MG PO; +OZEMPIC1 MG/0.75 SQ; +PROAIR HFA8.5 GM INH; +Rocaltrol0.25 MCG PO; +TAMIFLU 75MG CA75 MG PO; +TESSALON PERLE100 MG PO
[2020-03-06 15:38] LABS: BASO % 0.5 % (0.0-1.0); EOS # 0.6 10*3/uL (0.0-0.4); EOS % 7.4 % (1.0-4.0); LYMPH % 12.6 % (27.0-41.0); MEAN CELL VOLUME 99.4 fl (81.0-99.0); MEAN CORPUSCULAR HGB 30.4 pg (27.0-31.0); MEAN CORPUSCULAR HGB CONC 30.6 g/dl (33.0-37.0); MEAN PLATELET VOLUME 8.9 fl (9.6-12.3); MONO # 0.6 10*3/uL (0.1-1.0); MONO % 7.6 % (3.0-9.0); NEUT # 5.6 10*3/uL (2.3-7.9); NEUT % 70.8 % (47.0-73.0); PLATELET COUNT AUTOMATED 183 10*3/uL (130-400); RED BLOOD COUNT 3.22 10*6/uL (4.10-5.10); RED CELL DISTRI WIDTH 16.2 % (0-14.5); WHITE BLOOD COUNT 7.9 10*3/uL (4.8-10.8)
[2020-03-06 15:54] LABS: ALBUMIN 3.1 gm/dl (3.1-4.5); CREATININE 1.74 mg/dL (0.55-1.02); POTASSIUM 3.2 mmol/L (3.5-5.1); TOTAL PROTEIN 7.1 gm/dL (6.4-8.2)
== END 2020-03-06 19:25 | disposition home or self-care (01) ==
LOC: ED 15:01
PROVIDERS: Emergency Medicine
DX: E11.649 Type 2 diabetes mellitus with hypoglycemia without coma (principal); I10 Essential (primary) hypertension; Z79.899 Other long term (current) drug therapy; Z88.8 Allergy status to other drugs, medicaments and biological substances; Z79.4 Long term (current) use of insulin

== ENCOUNTER → 2020-05-13 | Outpatient (CLI) | payer OTHER | END | disposition home or self-care (01) | LOC: US 05-08 01:32 | DX: R16.1 Splenomegaly, not elsewhere classified (principal) ==

== ENCOUNTER → 2020-06-22 | Outpatient (CLI) | payer OTHER ==
[2020-06-22 11:34] LABS: CREATININE 2.2 mg/dL (0.55-1.02); POTASSIUM 3.6 mmol/L (3.5-5.1)
[2020-06-22 12:34] LABS: PTH INTACT 169.9 pg/mL (18.5-88.0); VITAMIN D, 25-HYDROXY 41.5 ng/mL (30-100)
[2020-06-22 12:56] LABS: BILIRUBIN NEGATIVE (NEGATIVE); BLOOD NEGATIVE (NEGATIVE); CLARITY CLEAR (CLEAR); COLOR YELLOW (YELLOW); GLUCOSE NEGATIVE (NEGATIVE); KETONE NEGATIVE (NEGATIVE); LEUKO ESTERASE NEGATIVE (NEGATIVE); NITRITE NEGATIVE (NEGATIVE); UROBILINOGEN 0.2 E.U./dl (0.2-1.0); WBC 0-2 wbc/hpf (0-5)
[2020-06-24 10:07] LABS: CREATININE,URINE 74.7 mg/dL (Not Estab.)
== END | disposition home or self-care (01) ==
LOC: LAB 10:43
PROVIDERS: Internal Medicine Nephrology
DX: N18.3 Chronic kidney disease, stage 3 (moderate) (principal)

== ENCOUNTER → 2020-10-11 | Outpatient (CLI) | payer OTHER ==
[~2020-10-11] MED LIST changes: +ATORVASTATIN CA40 M1 PO; +D3 + K2 DOTS 11 EACH PO; +KORLYM PO; +NP THYROID90 MG PO; +Zaroxolyn,Diul2.5 MG PO
[2020-10-11 09:45] LABS: BILIRUBIN Negative (Negative); BLOOD Negative (Negative); CLARITY Cloudy (Clear); COLOR Yellow (Yellow); GLUCOSE Negative (Negative); KETONE Negative (Negative); LEUKO ESTERASE 2+ (Negative); NITRITE Negative (Negative); SPECIFIC GRAVITY 1.015 (1.001-1.030); UROBILINOGEN 0.2 E.U./dl (0.0-1.0)
[2020-10-11 09:51] LABS: CREATININE 2.33 mg/dL (0.55-1.02); FREE T4 0.78 ng/dl (0.76-1.46); POTASSIUM 5.5 mmol/L (3.5-5.1)
[2020-10-11 09:53] LABS: BACTERIA 2+; WBC TNTC wbc/hpf (0-5)
[2020-10-11 09:58] LABS: THYROID STIM HORMONE (HS) 2.8 uIU/ml (0.358-4.75)
[2020-10-11 10:38] LABS: PTH INTACT 126.9 pg/mL (18.5-88.0); VITAMIN D, 25-HYDROXY 64.7 ng/mL (30-100)
== END | disposition home or self-care (01) ==
LOC: LAB 09:04
PROVIDERS: ATTEND Internal Medicine
DX: E11.65 Type 2 diabetes mellitus with hyperglycemia (principal); E55.9 Vitamin D deficiency, unspecified; E03.9 Hypothyroidism, unspecified; E11.40 Type 2 diabetes mellitus with diabetic neuropathy, unspecified; E21.3 Hyperparathyroidism, unspecified

== ENCOUNTER 2020-11-01 06:10 | Emergency (ER) | payer OTHER ==
[2020-11-01 06:22] VITALS: BP 133/83
== END 2020-11-01 09:05 | disposition home or self-care (01) ==
LOC: ED 06:10
DX: M47.812 Spondylosis without myelopathy or radiculopathy, cervical region (principal); Z88.8 Allergy status to other drugs, medicaments and biological substances; Z79.4 Long term (current) use of insulin; Z79.899 Other long term (current) drug therapy; Z79.2 Long term (current) use of antibiotics

== ENCOUNTER → 2021-04-25 | Outpatient (CLI) | payer OTHER ==
[2021-04-25 10:41] LABS: BILIRUBIN Negative (Negative); BLOOD Negative (Negative); CLARITY Clear (Clear); COLOR Yellow (Yellow); GLUCOSE Negative (Negative); KETONE Negative (Negative); LEUKO ESTERASE Negative (Negative); NITRITE Negative (Negative)
[2021-04-25 10:46] LABS: CREATININE 1.65 mg/dL (0.55-1.02); FREE T4 0.75 ng/dl (0.76-1.46); POTASSIUM 4.1 mmol/L (3.5-5.1)
[2021-04-25 10:52] LABS: THYROID STIM HORMONE (HS) 4.6 uIU/ml (0.358-4.75)
[2021-04-25 11:06] LABS: WBC 0-2 wbc/hpf (0-5)
[2021-04-25 11:09] LABS: BACTERIA TRACE; MUCOUS 1+
== END | disposition home or self-care (01) ==
LOC: LAB 09:57
PROVIDERS: ATTEND Internal Medicine
DX: E11.65 Type 2 diabetes mellitus with hyperglycemia (principal); E11.40 Type 2 diabetes mellitus with diabetic neuropathy, unspecified; E55.9 Vitamin D deficiency, unspecified; E03.9 Hypothyroidism, unspecified; E24.9 Cushing's syndrome, unspecified

== ENCOUNTER → 2021-10-03 | Outpatient (CLI) | payer OTHER ==
[2021-10-03 14:56] LABS: HEMATOCRIT 28.6 % (37.0-47.0)
[2021-10-03 14:57] LABS: BILIRUBIN Negative (Negative); BLOOD Negative (Negative); CLARITY Clear (Clear); COLOR Yellow (Yellow); GLUCOSE Negative (Negative); KETONE Negative (Negative); LEUKO ESTERASE Negative (Negative); NITRITE Negative (Negative); SPECIFIC GRAVITY <= 1.005 (1.001-1.030); UROBILINOGEN 0.2 E.U./dl (0.0-1.0)
[2021-10-03 15:09] LABS: ALBUMIN 2.8 gm/dl (3.1-4.5); CREATININE 1.6 mg/dL (0.55-1.02); POTASSIUM 4.4 mmol/L (3.5-5.1)
[2021-10-03 15:23] LABS: BACTERIA 1+; HYALINE CAST 0-2
== END | disposition home or self-care (01) ==
LOC: LAB 14:23
PROVIDERS: ATTEND Surgery
DX: N18.30 Chronic kidney disease, stage 3 unspecified (principal)

== ENCOUNTER 2021-11-02 06:55 | Inpatient (IN) | payer OTHER ==
[~2021-11-02] VITALS: Ht 157.5 cm; Wt 122.0 kg
[2021-11-02] VITALS (10 sets, daily range): BP systolic 96–202; BP diastolic 49–91
[2021-11-02 07:51] LABS: HEMATOCRIT 28.3 % (37.0-47.0); MEAN CELL VOLUME 97.3 fl (81.0-99.0); MEAN CORPUSCULAR HGB 31.6 pg (27.0-31.0); MEAN CORPUSCULAR HGB CONC 32.5 g/dl (33.0-37.0); MEAN PLATELET VOLUME 10.6 fl (9.6-12.3); NUCLEATED RED BLOOD CELL 0.8 % (0.0-0.0); PLATELET COUNT AUTOMATED 181 10*3/uL (130-400); RED BLOOD COUNT 2.91 10*6/uL (4.10-5.10); RED CELL DISTRI WIDTH 15.9 % (0-14.5); WHITE BLOOD COUNT 3.8 10*3/uL (4.8-10.8)
[2021-11-02 08:02] LABS: ACT PARTIAL THROMBO TIME 24.8 SECONDS (20.0-32.1)
[2021-11-02 08:06] LABS: ALBUMIN 2.5 gm/dl (3.1-4.5); CREATININE 1.78 mg/dL (0.55-1.02); POTASSIUM 4.7 mmol/L (3.5-5.1); TOTAL PROTEIN 6.7 gm/dL (6.4-8.2)
[2021-11-02 08:21] LABS: OVALOCYTES FEW; PLATELET SUFFICIENCY NORMAL (NORMAL); POLYCHROMASIA SLIGHT; TOTAL CELLS COUNTED 100 #CELLS
[2021-11-02 11:22] LABS: ABG BASE EXCESS -2.3 mmol/L (-2.0-2.0); ARTERIAL BLOOD GAS PH 7.379 (7.35-7.45); ARTERIAL BLOOD GAS PO2 92.6 (80-90)
[2021-11-02] MEDS ORDERED: DECADRON6 M1 PO (14:01)
[2021-11-02] MEDS ORDERED: CYMBALTA60 MG PO (14:02)
[2021-11-02] MEDS ORDERED: LASIX40 MG PO (14:03)
[2021-11-02] MEDS ORDERED: LEVEMIR100 UNIT/1 SC (14:05)
[2021-11-02] MEDS ORDERED: LEVOTHYROXINE25 MCG PO (14:06)
[2021-11-02] MEDS ORDERED: ALLERGY RELIEF5 MG PO (14:06)
[2021-11-02] MEDS ORDERED: LOSARTAN POTASS25 M1 PO (14:07)
[2021-11-02] MEDS ORDERED: POTASSIUM CHLO20 ME3 PO (14:08)
[2021-11-02] MEDS ORDERED: WIXELA 250-501 EACH INH (14:12)
[2021-11-02] MEDS ORDERED: VITAMIN D350 MC2 PO (14:12)
[2021-11-02 14:47] LABS: BILIRUBIN Negative (Negative); BLOOD 3+ (Negative); CLARITY Clear (Clear); COLOR Yellow (Yellow); GLUCOSE 3+ (Negative); KETONE Negative (Negative); LEUKO ESTERASE Negative (Negative); NITRITE Negative (Negative); PH 5.5 (4.5-8.0); SPECIFIC GRAVITY >= 1.030 (1.001-1.030)
[2021-11-02 15:08] LABS: URINE AMPHETAMINES < 1000 (1000ng/ml); URINE BARBITURATES < 200 (200ng/ml); URINE BENZODIAZEPINES < 200 (200ng/ml); URINE CANNABINOIDS (THC) < 50 (50ng/ml); URINE COCAINE < 300 (300ng/ml); URINE METHADONE < 300 (300ng/ml); URINE OPIATES < 300 (300ng/ml)
[2021-11-02 15:22] LABS: BACTERIA 1+
[2021-11-02 15:32] LABS: URINE PHENCYCLIDINE < 25 (25ng/ml)
[2021-11-02 17:55] LABS: ARTERIAL BLOOD GAS PH 7.226 (7.35-7.45); ARTERIAL BLOOD GAS PO2 216.3 (80-90)
[2021-11-02 17:59] LABS: ABG BASE EXCESS -7.4 mmol/L (-2.0-2.0)
[2021-11-02 22:12] LABS: ABG BASE EXCESS -2.1 mmol/L (-2.0-2.0); ARTERIAL BLOOD GAS PH 7.321 (7.35-7.45); ARTERIAL BLOOD GAS PO2 164.5 (80-90)
[2021-11-03] VITALS (12 sets, daily range): BP systolic 99–144; BP diastolic 48–71
[2021-11-03 05:29] LABS: ALBUMIN 2.1 gm/dl (3.1-4.5); CREATININE 2.26 mg/dL (0.55-1.02); POTASSIUM 4.8 mmol/L (3.5-5.1); TOTAL PROTEIN 5.7 gm/dL (6.4-8.2)
[2021-11-03 06:26] LABS: HEMATOCRIT 23.8 % (37.0-47.0); LYMPH # 0.2 10*3/uL (1.3-4.4); LYMPH % 4.7 % (27.0-41.0); MEAN CORPUSCULAR HGB CONC 31.1 g/dl (33.0-37.0); MONO # 0.4 10*3/uL (0.1-1.0); MONO % 12.1 % (3.0-9.0); NEUT % 81.3 % (47.0-73.0); NUCLEATED RED BLOOD CELL 0.6 % (0.0-0.0); PLATELET COUNT AUTOMATED 189 10*3/uL (130-400); RED BLOOD COUNT 2.31 10*6/uL (4.10-5.10); RED CELL DISTRI WIDTH 16.6 % (0-14.5); WHITE BLOOD COUNT 3.6 10*3/uL (4.8-10.8)
[2021-11-04] VITALS (61 sets, daily range): BP systolic 72–143; BP diastolic 40–59
[2021-11-04 06:23] LABS: ALBUMIN 2.1 gm/dl (3.1-4.5); POTASSIUM 4.9 mmol/L (3.5-5.1)
[2021-11-04 06:28] LABS: CREATININE 2.74 mg/dL (0.55-1.02)
[2021-11-04 06:35] LABS: HEMATOCRIT 26.7 % (37.0-47.0); MEAN CELL VOLUME 102.3 fl (81.0-99.0); MEAN CORPUSCULAR HGB CONC 32.2 g/dl (33.0-37.0); NUCLEATED RED BLOOD CELL 0.6 % (0.0-0.0); RED BLOOD COUNT 2.61 10*6/uL (4.10-5.10); RED CELL DISTRI WIDTH 16.7 % (0-14.5); WHITE BLOOD COUNT 7.1 10*3/uL (4.8-10.8)
[2021-11-04 06:37] LABS: PLATELET COUNT AUTOMATED 267 10*3/uL (130-400)
[2021-11-04 07:51] LABS: TOTAL CELLS COUNTED 100 #CELLS
[2021-11-04 07:52] LABS: PLATELET SUFFICIENCY NORMAL (NORMAL); POLYCHROMASIA SLIGHT; ROULEAUX SLIGHT
[2021-11-04 09:22] LABS: ABG BASE EXCESS -4.1 mmol/L (-2.0-2.0); ARTERIAL BLOOD GAS PH 7.306 (7.35-7.45); ARTERIAL BLOOD GAS PO2 95.9 (80-90)
[2021-11-04 21:23] LABS: ARTERIAL BLOOD GAS PO2 64.8 (80-90)
[2021-11-04 21:28] LABS: ABG BASE EXCESS -15.4 mmol/L (-2.0-2.0); ARTERIAL BLOOD GAS PH 6.979 (7.35-7.45)
[2021-11-04 22:59] LABS: ABG BASE EXCESS -11.4 mmol/L (-2.0-2.0); ARTERIAL BLOOD GAS PO2 73.5 (80-90)
[2021-11-04 23:00] LABS: ARTERIAL BLOOD GAS PH 7.065 (7.35-7.45)
[2021-11-05] VITALS (10 sets, daily range): BP systolic 89–114; BP diastolic 49–56
[2021-11-05 02:23] LABS: ARTERIAL BLOOD GAS PO2 49.5 (80-90)
[2021-11-05 02:24] LABS: ABG BASE EXCESS -24.5 mmol/L (-2.0-2.0)
[2021-11-05 02:25] LABS: ARTERIAL BLOOD GAS PH 6.774 (7.35-7.45)
== END 2021-11-05 06:00 | DRG 720 ==
LOC: ED 06:55 → ICCU 10:22 → EDHOLD 10:22 → 4E 11:14 → ICCU 13:32
PROVIDERS: Emergency Medicine; Internal Medicine; Internal Medicine Critical Care Medicine; ADMIT Family Medicine; ATTEND Family Medicine
PROC: 5A1945Z Respiratory Ventilation, 24-96 Consecutive Hours (ICD-10-PCS; principal; 2021-11-02)
PROC: 0BH18EZ Insertion of Endotracheal Airway into Trachea, Via Natural or Artificial Opening Endoscopic (ICD-10-PCS; 2021-11-02)
PROC: 03HY33Z Insertion of Infusion Device into Upper Artery, Percutaneous Approach (ICD-10-PCS; 2021-11-02)
PROC: B34JZZZ Ultrasonography of Left Upper Extremity Arteries (ICD-10-PCS; 2021-11-02)
PROC: 5A0935A Assistance with Respiratory Ventilation, Less than 24 Consecutive Hours, High Flow/Velocity Cannula (ICD-10-PCS; 2021-11-02)
PROC: 02HV33Z Insertion of Infusion Device into Superior Vena Cava, Percutaneous Approach (ICD-10-PCS; 2021-11-02)
PROC: B548ZZA Ultrasonography of Superior Vena Cava, Guidance (ICD-10-PCS; 2021-11-02)
PROC: XW033E5 Introduction of Remdesivir Anti-infective into Peripheral Vein, Percutaneous Approach, New Technology Group 5 (ICD-10-PCS; 2021-11-03)
PROC: XW033H5 Introduction of Tocilizumab into Peripheral Vein, Percutaneous Approach, New Technology Group 5 (ICD-10-PCS; 2021-11-03)
PROC: 5A12012 Performance of Cardiac Output, Single, Manual (ICD-10-PCS; 2021-11-05)
DX: A41.9 Sepsis, unspecified organism (principal); U07.1 COVID-19; J12.82 Pneumonia due to coronavirus disease 2019; E80.6 Other disorders of bilirubin metabolism; J44.0 Chronic obstructive pulmonary disease with (acute) lower respiratory infection; I46.9 Cardiac arrest, cause unspecified; Z66 Do not resuscitate; Z51.5 Encounter for palliative care; I95.9 Hypotension, unspecified; D64.9 Anemia, unspecified; E87.1 Hypo-osmolality and hyponatremia; E03.9 Hypothyroidism, unspecified; N17.0 Acute kidney failure with tubular necrosis; E11.65 Type 2 diabetes mellitus with hyperglycemia; G93.41 Metabolic encephalopathy; E43 Unspecified severe protein-calorie malnutrition; R65.20 Severe sepsis without septic shock; J80 Acute respiratory distress syndrome; E11.42 Type 2 diabetes mellitus with diabetic polyneuropathy; G47.33 Obstructive sleep apnea (adult) (pediatric); I50.9 Heart failure, unspecified; E66.01 Morbid (severe) obesity due to excess calories; I13.0 Hypertensive heart and chronic kidney disease with heart failure and stage 1 through stage 4 chronic kidney disease, or unspecified chronic kidney disease; E11.22 Type 2 diabetes mellitus with diabetic chronic kidney disease; Z68.42 Body mass index [BMI] 45.0-49.9, adult; Z88.1 Allergy status to other antibiotic agents; Z90.710 Acquired absence of both cervix and uterus; Z82.49 Family history of ischemic heart disease and other diseases of the circulatory system; Z79.51 Long term (current) use of inhaled steroids; Z79.899 Other long term (current) drug therapy; Z79.4 Long term (current) use of insulin